=== PATIENT | female | born 1960 | race Caucasian/White ===

== ENCOUNTER 2016-11-04 10:25 | Emergency (ER) | payer OTHER | END 2016-11-04 12:14 | disposition home or self-care (01) | LOC: FER 10:25 | DX: S52.502A Unspecified fracture of the lower end of left radius, initial encounter for closed fracture (principal); S52.602A Unspecified fracture of lower end of left ulna, initial encounter for closed fracture; W08.XXXA Fall from other furniture, initial encounter; Y92.69 Other specified industrial and construction area as the place of occurrence of the external cause; Y99.0 Civilian activity done for income or pay | CPT/HCPCS: 73110 ==

== ENCOUNTER 2016-11-07 08:27 | Emergency (ER) | payer OTHER | END 2016-11-07 09:34 | disposition home or self-care (01) | LOC: FER 08:27 | DX: S52.92XD Unspecified fracture of left forearm, subsequent encounter for closed fracture with routine healing (principal); S52.202D Unspecified fracture of shaft of left ulna, subsequent encounter for closed fracture with routine healing | CPT/HCPCS: J1170 ==

== ENCOUNTER → 2016-11-09 | Day surgery (SDC) | payer OTHER ==
[2016-11-09 06:24] LABS: HCT 39.6 % (37.0-47.0); HGB 13.8 g/dl (12.5-16.0); MCHC 34.8 g/dL (32.0-36.0); MCV 86.1 fL (78.0-100.0); MPV 11.2 fL (6.0-9.5); RBC 4.6 M/uL (4.20-5.40); RDW 13.2 % (11.5-14.0); WBC 7.2 K/uL (4.0-10.5)
== END | disposition home or self-care (01) ==
LOC: FAS 05:34
PROVIDERS: Legal Medicine
DX: S52.562A Barton's fracture of left radius, initial encounter for closed fracture (principal); Z98.51 Tubal ligation status; Z98.890 Other specified postprocedural states; Z79.899 Other long term (current) drug therapy
CPT/HCPCS: 36415; 73100; 76000; C1713; J2704; J2795; J3010